=== PATIENT | female | born 2000 | race Caucasian/White ===

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

== ENCOUNTER 2020-06-25 10:08 | Emergency (ER) | payer MEDICAID ==
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
--- NOTE | 2020-06-25 12:04 | CR ---
INDICATION: Right foot pain, twisting injury, pain to distal 3rd through 5th metatarsals. TECHNIQUE: X-ray right foot, 3 views. COMPARISON: None available. FINDINGS: The alignment is normal. Negative for acute fracture or dislocation. The overlying soft tissues within normal limits. No radiopaque foreign body is seen. IMPRESSION: Unremarkable radiographs of the right foot. Dictated by Crys Rg MD @ 06/25/2020 12:02:[address] Crys Rg @ Jun 25 2020 12:02PM
[2020-06-25 12:52] VITALS: BP 100/61; PULSE 69
== END 2020-06-25 11:40 | disposition home or self-care (01) ==
LOC: MW.ED 10:08
DX: S93.691A Other sprain of right foot, initial encounter (principal); X50.1XXA Overexertion from prolonged static or awkward postures, initial encounter
CPT/HCPCS: 73630-26-RT; 73630-RT; 99282; 99283-25

== ENCOUNTER 2021-03-01 06:38 | Emergency (ER) | payer MEDICAID ==
[2021-03-01] MEDS ORDERED: diphenhydrAMINE 50 MG/ML SDV IVPUSH ONE (06:48)
[2021-03-01] MEDS ORDERED: Prochlorperazine 10 MG/2 ML SDV IVPUSH ONE (06:48)
[2021-03-01] MEDS ORDERED: Ketorolac 30 MG/ML SDV IVPUSH ONE (06:49)
[2021-03-01] MEDS ORDERED: Dextrose 5%-Lactated Ringers 1,000 ML IV SCH (07:00)
[2021-03-01 15:13] VITALS: BP 123/59; PULSE 98
== END 2021-03-01 08:03 | disposition home or self-care (01) ==
LOC: MW.ED 06:38
DX: U07.1 COVID-19 (principal); G43.909 Migraine, unspecified, not intractable, without status migrainosus
CPT/HCPCS: 87635; 96374; 96375; 99283; J0780; J1200; J1885; J7121; U0002

== ENCOUNTER 2021-06-27 15:50 | Emergency (ER) | payer MEDICAID ==
[2021-06-27] MEDS ORDERED: Prochlorperazine 10 MG/2 ML SDV IVPUSH ONE (16:05)
[2021-06-27] MEDS ORDERED: diphenhydrAMINE 50 MG/ML SDV IVPUSH ONE (16:05)
[2021-06-27] MEDS ORDERED: Ketorolac 30 MG/ML SDV IVPUSH STA (16:05)
[2021-06-27] MEDS ORDERED: Dextrose 5%-Lactated Ringers 1,000 ML IV SCH (16:15)
[2021-06-27 19:30] VITALS: BP 101/61; PULSE 53
== END 2021-06-27 17:57 | disposition home or self-care (01) ==
LOC: MW.ED 15:50
DX: G43.909 Migraine, unspecified, not intractable, without status migrainosus (principal)
CPT/HCPCS: 96374; 96375; 99283; J0780; J1200; J1885; J7121

== ENCOUNTER 2022-01-11 10:43 | Emergency (ER) | payer MEDICAID ==
[2022-01-11 12:15] LABS: CORONAVIRUS COVID-19 NAA NEGATIVE (NEGATIVE); INFLUENZA A NAA POSITIVE (NEGATIVE); INFLUENZA B NAA NEGATIVE (NEGATIVE)
[2022-01-11 15:16] VITALS: BP 105/68; PULSE 76
== END 2022-01-11 15:15 | disposition home or self-care (01) ==
LOC: MW.ED 10:43
DX: J10.1 Influenza due to other identified influenza virus with other respiratory manifestations (principal); Z79.899 Other long term (current) drug therapy; Z20.822 Contact with and (suspected) exposure to COVID-19
CPT/HCPCS: 0240U; 93005; 99284

== ENCOUNTER 2022-03-20 12:15 | Emergency (ER) | payer MEDICAID ==
[2022-03-20] MEDS ORDERED: Sodium Chloride 0.9% 2.5 ML Syringe FLUSH PRN (12:38)
[2022-03-20] MEDS ORDERED: Sodium Chloride 0.9% 10 ML Syringe FLUSH PRN (12:38)
[2022-03-20] MEDS ORDERED: Ibuprofen 600 MG Tab PO ONE (12:39)
[2022-03-20 13:28] LABS: CARBON DIOXIDE,CO2 24.2 mmol/L (21.0-32.0); POTASSIUM,K 3.8 mmol/L (3.5-5.1)
[2022-03-20 14:58] VITALS: BP 102/67; PULSE 85
== END 2022-03-20 15:01 | disposition home or self-care (01) ==
LOC: MW.ED 12:15
DX: R10.2 Pelvic and perineal pain (principal)
CPT/HCPCS: 36415; 76830; 80053; 81001; 81025; 83690; 85025; 87086; 99284; A9270; J3490

== ENCOUNTER 2022-08-13 09:10 | Emergency (ER) | payer SELFPAY ==
[2022-08-13 09:23] VITALS: BP 125/67
[2022-08-13] MEDS ORDERED: Ketorolac 60 MG/2 ML SDV IM ONE (10:09)
[2022-08-13] MEDS ORDERED: Orphenadrine 60 MG/2 ML Inj IM ONE (10:09)
[2022-08-13] MEDS ORDERED: Cyclobenzaprine 10 MG Tab PO ONE (10:16)
[2022-08-13 11:34] VITALS: PULSE 65
== END 2022-08-13 11:34 | disposition home or self-care (01) ==
LOC: MW.ED 09:10
DX: M43.6 Torticollis (principal)
CPT/HCPCS: 72040; 96372; 99283; A9270; J1885

== ENCOUNTER 2023-02-04 07:16 | Emergency (ER) | payer SELFPAY ==
[2023-02-04 08:26] LABS: CORONAVIRUS COVID-19 NAA NEGATIVE (NEGATIVE); INFLUENZA A NAA NEGATIVE (NEGATIVE); INFLUENZA B NAA POSITIVE (NEGATIVE); RESPIRATORY SYNCYTIAL VIR NAA NEGATIVE (NEGATIVE)
[2023-02-04] MEDS ORDERED: Acetaminophen 325 MG Tab PO ONE (08:28)
[2023-02-04] MEDS ORDERED: Ibuprofen 400 MG Tab PO ONE (08:28)
[2023-02-04] MEDS ORDERED: Dexamethasone 10 MG/ML SDV PO ONE (08:28)
[2023-02-04 08:36] VITALS: PULSE 89
[2023-02-04 10:36] VITALS: BP 96/64
== END 2023-02-04 10:35 | disposition home or self-care (01) ==
LOC: MW.ED 07:16
DX: J10.1 Influenza due to other identified influenza virus with other respiratory manifestations (principal); Z20.822 Contact with and (suspected) exposure to COVID-19
CPT/HCPCS: 0241U; 87651; 99283; A9270; J8540

== ENCOUNTER 2023-05-28 10:36 | Emergency (ER) | payer MEDICAID ==
[2023-05-28 11:33] VITALS: BP 116/63; PULSE 99
== END 2023-05-28 11:30 | disposition home or self-care (01) ==
LOC: MW.ED 10:36
DX: H66.91 Otitis media, unspecified, right ear (principal)
CPT/HCPCS: 99282

== ENCOUNTER 2023-09-11 16:54 | Emergency (ER) | payer MEDICAID ==
[2023-09-11] MEDS: Sodium Chloride 0.9% 1,000 ML IV STA ×2 (17:26→18:32)
[2023-09-11 17:27] LABS: BASOPHILS ABSOLUTE AUTO 0.03 K/uL (0.00-0.20); BASOPHILS PERCENT AUTO 0.2 % (0.0-1.0); EOSINOPHILS ABSOLUTE AUTO 0.06 K/uL (0.00-0.45); EOSINOPHILS PERCENT AUTO 0.4 % (0.0-6.0); HEMOGLOBIN 5.9 g/dL (12.0-16.0); IMMATURE GRAN ABSOLUTE AUTO 0.31 K/uL (0.00-0.05); IMMATURE GRAN PERCENT AUTO 2.3 % (0.0-0.4); LYMPHOCYTES ABSOLUTE AUTO 1.91 K/uL (1.00-4.80); LYMPHOCYTES PERCENT AUTO 14.2 % (24.0-44.0); MEAN CORPUSCULAR HEMOGLOBIN 34.3 pg (28.0-32.0); MEAN CORPUSCULAR HGB CONC 31.1 g/dL (32.0-36.0); MEAN CORPUSCULAR VOLUME 110.5 fL (83.0-99.0); MEAN PLATELET VOLUME 8.7 fL (9.4-12.3); MONOCYTES ABSOLUTE AUTO 1.07 K/uL (0.00-0.80); MONOCYTES PERCENT AUTO 7.9 % (0.0-8.0); NEUTROPHILS ABSOLUTE AUTO 10.09 K/uL (1.80-7.70); NRBC ABSOLUTE 0.07 K/uL (0.00-0.02); NRBC PERCENT 0.5 /100WBC (0.0-0.2); PLATELET COUNT,PLT 349 K/uL (150-400); RED BLOOD CELL COUNT 1.72 M/uL (4.10-5.30); WHITE BLOOD CELL COUNT,WBC 13.47 K/uL (3.9-11.3)
[2023-09-11] MEDS: Ondansetron 4 MG/2 ML SDV IVPUSH STA (17:32)
[2023-09-11 17:52] LABS: INR 0.94 (0.86-1.11)
[2023-09-11 17:57] LABS: A/G RATIO 0.4 (0.9-1.6); ALBUMIN 2.3 g/dL (3.4-5.0); CALCIUM 8.8 mg/dL (8.5-10.1); CARBON DIOXIDE,CO2 22.2 mmol/L (21.0-32.0); CREATININE 0.7 mg/dL (0.6-1.0); EST CRCL DRUG DOSING (CG) 103.4 mL/min; POTASSIUM,K 3.6 mmol/L (3.5-5.1); PROTEIN TOTAL,TP 7.5 g/dL (6.4-8.2)
[2023-09-11 18:13] LABS: APPEARANCE,URINE CLOUDY; GLUCOSE,URINE NEGATIVE (NEGATIVE); KETONES,URINE NEGATIVE (NEGATIVE); LEUKOCYTE ESTERASE,URINE TRACE (NEGATIVE); NITRITE,URINE POSITIVE (NEGATIVE); OCCULT BLOOD,URINE MODERATE (NEGATIVE); PROTEIN,URINE >=300 mg/dL (NEGATIVE); UROBILINOGEN,URINE >=8.0 EU/dL (<2.0)
[2023-09-11 18:15] LABS: BILIRUBIN,URINE LARGE (NEGATIVE); COLOR,URINE DARK YELLOW
[2023-09-11 18:38] LABS: BACTERIA,URINE 4+ (NEGATIVE); EPITHELIAL CELLS,URINE FEW (NONE-FEW); WBC,URINE 32-40 (0-5/HPF)
[2023-09-11 18:39] LABS: AMORPHOUS SEDIMENT,URINE MODERATE (NEGATIVE)
[2023-09-11 18:42] LABS: URIC ACID 3.8 mg/dL (2.6-7.2)
[2023-09-11 18:44] LABS: LACTIC ACID 0.6 mmol/L (0.4-2.0)
[2023-09-11 18:53] LABS: PERCENT FE SATURATION 27.15 % (20-55)
[2023-09-11 19:07] LABS: FOLIC ACID 7.4 ng/mL (8.60-58.90)
[2023-09-11] MEDS: Piperacillin/Tazobactam 4.5 GM in Sodium Chloride 0.9% 100 ML IV STA (19:21)
[2023-09-11] MEDS: Acetaminophen 500 MG Tab PO STA (19:28)
[2023-09-11 20:35] LABS: CORONAVIRUS COVID-19 NAA NEGATIVE (NEGATIVE); INFLUENZA A NAA NEGATIVE (NEGATIVE); INFLUENZA B NAA NEGATIVE (NEGATIVE); RESPIRATORY SYNCYTIAL VIR NAA NEGATIVE (NEGATIVE)
[2023-09-11 20:53] LABS: HEPATITIS C AB# 0.19 INDEX (<0.8)
[2023-09-11 23:03] LABS: AMPHETAMINES SCREEN, URINE NEGATIVE (CUTOFF=500); BARBITURATE SCREEN,URINE PRESUMPTIVE POSITIVE (CUTOFF=200); BENZODIAZEPINES SCREEN,URINE NEGATIVE (CUTOFF=150); BUPRENORPHINE SCREEN,URINE NEGATIVE (CUTOFF=10); METHADONE SCREEN, URINE NEGATIVE (CUTOFF=200); METHAMPHETAMINES SCREEN, URINE NEGATIVE (CUTOFF=500); OXYCODONE SCREEN,URINE NEGATIVE (CUT0FF=100); PCP SCREEN,URINE NEGATIVE (CUTOFF=25); THC SCREEN,URINE 20 NG/ML NEGATIVE (CUTOFF=50)
[2023-09-12 00:32] VITALS: BP 102/63; PULSE 102
[2023-09-12] MEDS: Piperacillin/Tazobactam 4.5 GM in Sodium Chloride 0.9% 100 ML IV STA (01:07)
[2023-09-13 07:07] LABS: URINE PROTEIN 519 mg/dL (1-14)
== END 2023-09-12 02:00 ==
LOC: MW.ED 16:54
DX: O23.43 Unspecified infection of urinary tract in pregnancy, third trimester (principal); O12.13 Gestational proteinuria, third trimester; O99.013 Anemia complicating pregnancy, third trimester; O99.283 Endocrine, nutritional and metabolic diseases complicating pregnancy, third trimester; O36.0131 Maternal care for anti-D [Rh] antibodies, third trimester, fetus 1; N39.0 Urinary tract infection, site not specified; D52.9 Folate deficiency anemia, unspecified; D58.2 Other hemoglobinopathies; E80.7 Disorder of bilirubin metabolism, unspecified; Z3A.29 29 weeks gestation of pregnancy; Z79.899 Other long term (current) drug therapy; Z75.8 Other problems related to medical facilities and other health care
CPT/HCPCS: 0241U; 36415; 36430; 76700; 76805; 80053; 80143; 80305; 80307; 81001; 82248; 82607; 82728; 82746; 83550; 83605; 83615; 83690; 84550; 85025; 85610; 85730; 86706; 86803; 86850; 86900; 86901; 86920; 86921; 86922; 87040; 87086; 87088; 87186; 87340; 96361; 96365; 96375; 99285; A9270; J2405; J2543; J3490; J7030; P9016

== ENCOUNTER 2023-11-02 14:21 | Inpatient (IN) | payer MEDICAID ==
[2023-11-02] MEDS: Lactated Ringers 1,000 ML IV SCH (15:40)
[2023-11-02] MEDS ORDERED: Tranexamic Acid IN NACL,ISO-OS 1,000 MG in Premix Bag 1 BAG IV PRN (17:53)
[2023-11-02] MEDS ORDERED: Water For Irrigation,Sterile 1,000 ML Container IRR PRN (17:53)
[2023-11-02] MEDS ORDERED: Misoprostol 200 MCG Tab PO PRN (17:53)
[2023-11-02] MEDS ORDERED: Sodium Chloride 0.9% 20 ML SDV IV PRN (17:53)
[2023-11-02] MEDS ORDERED: Methylergonovine 0.2 MG/1 ML Amp IM PRN (17:53)
[2023-11-02] MEDS ORDERED: Sodium Chloride 0.9% 2.5 ML Syringe FLUSH PRN (17:53)
[2023-11-02] MEDS ORDERED: Sodium Chloride 0.9% 10 ML Syringe FLUSH PRN (17:53)
[2023-11-02] MEDS ORDERED: Carboprost Tromethamine 250 MCG/1 mL Vial IM PRN (17:53)
[2023-11-02] MEDS ORDERED: Lidocaine 1% 50 ML MDV INJECT PRN (17:53)
[2023-11-02] MEDS ORDERED: Oxytocin/0.9 % Sodium Chloride 30 UNIT/500 ML BAG IV SCH (18:00)
[2023-11-02] MEDS ORDERED: Phenylephrine HCl In 0.9% NaCl 1 MG/10 ML Syringe IVPUSH PRN (18:04)
[2023-11-02] MEDS ORDERED: ePHEDrine 50 MG/ML SDV IVPUSH PRN (18:04)
[2023-11-02] MEDS ORDERED: Ropivacaine HCl/PF 400 MG in Premix Bag 1 BAG EPIDUR SCH (18:15)
[2023-11-02] MEDS ORDERED: dexmedeTOMIDine HCl 200 MCG/2 ML SDV EPIDUR SCH (18:15)
[2023-11-02 18:45] LABS: HEMOGLOBIN 10.1 g/dL (12.0-16.0); MEAN CORPUSCULAR HEMOGLOBIN 34.4 pg (28.0-32.0); MEAN CORPUSCULAR HGB CONC 33.7 g/dL (32.0-36.0); MEAN PLATELET VOLUME 9.5 fL (9.4-12.3); PLATELET COUNT,PLT 255 K/uL (150-400); RED BLOOD CELL COUNT 2.94 M/uL (4.10-5.30); WHITE BLOOD CELL COUNT,WBC 12.63 K/uL (3.9-11.3)
[2023-11-02] MEDS ORDERED: Terbutaline 1 MG/ML SDV SUBCUT PRN (20:11)
[2023-11-02] MEDS ORDERED: Misoprostol 25 MCG (1/4 of 100 MCG) Tab VAG PRN ×2 (20:11)
[2023-11-02] MEDS: Oxytocin/0.9 % Sodium Chloride 30 UNIT/500 ML BAG IV SCH (21:26)
[2023-11-02] MEDS: Butorphanol 2 MG/ML SDV IVPUSH PRN (21:38)
[2023-11-03] MEDS ORDERED: Docusate Sodium 100 MG Cap PO PRN (02:05)
[2023-11-03] MEDS ORDERED: oxyCODONE 5 MG Tab PO PRN (02:05)
[2023-11-03 02:23] LABS: PH,UMBILICAL ARTERIAL 7.222 (7.18-7.38); PH,UMBILICAL VENOUS 7.266 (7.25-7.45)
[2023-11-03] MEDS: Witch Hazel Medicated Pads 40/Jar TOP PRN (03:35)
[2023-11-03] MEDS: Benzocaine/Menthol 20%-0.5% Spray 78 GM Cannister TOP PRN (03:36)
[2023-11-03] MEDS: Lanolin 100% Cream 7 GM Tube TOP PRN (03:36)
[2023-11-03] MEDS: Ibuprofen 800 MG Tab PO PRN (03:37)
[2023-11-03] MEDS: Acetaminophen 500 MG Tab PO PRN (03:37)
[2023-11-04 06:52] LABS: HEMOGLOBIN 9.4 g/dL (12.0-16.0)
[2023-11-05 17:52] VITALS: BP 93/59; PULSE 90
== END 2023-11-05 17:45 | disposition home or self-care (01) | DRG 807 ==
LOC: MW.CHFP 14:21 → MW.OB 16:13 → OBSVTOIN 11-03 01:22 → MW.OB 11-03 05:18
PROVIDERS: ADMIT Obstetrics & Gynecology Obstetrics; ATTEND Obstetrics & Gynecology Obstetrics
PROC: 10E0XZZ Delivery of Products of Conception, External Approach (ICD-10-PCS; principal; 2023-11-03)
PROC: 3E033VJ Introduction of Other Hormone into Peripheral Vein, Percutaneous Approach (ICD-10-PCS; 2023-11-03)
PROC: 3E0334Z Introduction of Serum, Toxoid and Vaccine into Peripheral Vein, Percutaneous Approach (ICD-10-PCS; 2023-11-03)
DX: O42.02 Full-term premature rupture of membranes, onset of labor within 24 hours of rupture (principal); Z37.0 Single live birth; O26.893 Other specified pregnancy related conditions, third trimester; O99.02 Anemia complicating childbirth; Z3A.37 37 weeks gestation of pregnancy; Z67.11 Type A blood, Rh negative
CPT/HCPCS: 36415; 59025; 59409; 82803; 84112; 85014; 85018; 85027; 85460; 86592; 86850; 86900; 86901; A9270-GY; J0595; J2590; J2790; J7120

== ENCOUNTER 2024-03-23 10:56 | Emergency (ER) | payer MEDICAID ==
[2024-03-23 12:11] LABS: APPEARANCE,URINE CLEAR; BILIRUBIN,URINE NEGATIVE (NEGATIVE); COLOR,URINE YELLOW; GLUCOSE,URINE NEGATIVE (NEGATIVE); KETONES,URINE NEGATIVE (NEGATIVE); LEUKOCYTE ESTERASE,URINE NEGATIVE (NEGATIVE); NITRITE,URINE NEGATIVE (NEGATIVE); OCCULT BLOOD,URINE NEGATIVE (NEGATIVE); PH,URINE 5.5 (5.0-8.0); PROTEIN,URINE NEGATIVE (NEGATIVE); UROBILINOGEN,URINE 0.2 EU/dL (<2.0)
[2024-03-23] MEDS: Lidocaine 4% Patch TOP ONE (13:09)
[2024-03-23] MEDS: Ketorolac 30 MG/ML SDV IM ONE (13:09)
[2024-03-23] MEDS: Dexamethasone 4 MG Tab PO ONE (13:09)
[2024-03-23] MEDS: Acetaminophen 500 MG Tab PO ONE (13:10)
[2024-03-23] MEDS: tiZANidine 4 MG Tab PO ONE (13:14)
[2024-03-23 18:20] VITALS: BP 98/53; PULSE 74
== END 2024-03-23 18:17 | disposition home or self-care (01) ==
LOC: MW.ED 10:56
DX: S39.012A Strain of muscle, fascia and tendon of lower back, initial encounter (principal); Z86.16 Personal history of COVID-19; Z79.899 Other long term (current) drug therapy; X50.9XXA Other and unspecified overexertion or strenuous movements or postures, initial encounter
CPT/HCPCS: 72131; 81003; 81025; 96372; 99284; A9270; J1885; J8540; 99283